=== PATIENT | male | born 1990 | race Caucasian/White ===

== ENCOUNTER 2025-07-05 09:51 | Outpatient (OUT) | payer MEDICAID, SELFPAY ==
--- OUTSIDE RECORDS SUMMARY | 2016-06-07 01:32 | XMS_ITS | Encounter Summary ---
Author Organization [facility] Address [address], [address] [place] [address] Care Team Providers Care Director Recreation Name Role Phone Sonido Caballero MD Primary Care Provider [phone] Encounter Details Date Type Department Care Team (Late st Contact Info) Description 06/07/2016 1:32 AM EDT Hospital Encounter MTH CT Scan [address] [id number] Ramiro Diaz MD [address] [place] [address] Social History Tobacco Use Types Packs/Day Years Used Date Smoking Tobacco: Former Cigarettes Q uit: 07/15/2016 Smokeless Tobacco: Never Sex and Gender Information Value Date Recorded Sex Assigned at Not on file Legal Sex Male 11:19 AM EDT Gender Identity Not on file Sexual Orientation Not on file documented as of this encounter Plan of Treatment Not on file documented as of this encounter Procedures Procedure Name Priority Date/Time Associated Diagnosis Comments CT CHEST W CONTRAST STAT 05/31/2016 2 :28 PM EDT documented in this encounter Visit Diagnoses Not on filedocumented in this encounter Administered Medications Inactive Administered Medications - up to 3 most recent administrations Medication Order MAR Action Action Date Dose Rate Site iopamidol (ISOVUE-300) 61 % injection 100 mL 100 mL, IntraVENous, IMG ONCE PRN, 1 dose, Starting on Fri05/31/16 at 1416, Until Fri05/31/16 at 1428, Other Given 05/31/2016 2:28 PM EDT 100 mLs documented in this encounter Additional Health Concerns Infection Onset Date Last Indicated Resolved Time MRSA Comment:Mediastinum and pleural fluid 06/05/2016 06/03/2016 06/03/2016 documented as of this encounter Care Teams Director Recreation Relationship Specialty Start Date End Date Sonido Caballero MD [address] [place] [address] PCP - General 06/06/16 documented as of this encounter
--- OUTSIDE RECORDS SUMMARY | 2024-11-01 10:00 | XMS_ITS ---
[facility] Address [address] [facility] [place] [address] Care Team Providers Care Roll Handler Name Role Phone Abraham Lozano Primary Care Provider [phone] REASON FOR VISIT Referral from Dr. Caballero for anxiety, depression Encounters Encounter Location Date Provider Diagnosis [facility] [address] [place] [address] 2024 Abraham Lozano Plan Of Treatment Next Appt Details Provider Name:Zulema Francois jose, 07/28/2025 08:45:00 AM, [address] [place], [address], Progress Notes * ANTHONY PALMER ADOB:1990 (35 yo M)Acc No.[id number]:11/01/2024 Behavioral Health Patient: James GILBERTOANTHONY Provider: ENA Toledo :1990 A ge:34 Y S ex:Male Date:11/01/2024 Address:[address] [place], [place] [id number] Subjective: * Chief Complaints: * [address] Caballero for anxiety, depression. * Medical History: Objective: * Vitals: Assessment: Plan: * Treatment: Care Plan: * Problems: * Images: * Electronic signature of ENA Rudd on 07/05/2025 at 09:59 AM EDT Sign off status: Pending * Provider: ENA Toledo Date: 0 11/01/2024 Generated for Printi ng/Faxing/eTransmitting on: 0 07/05/2025 09:59 AM EDT
--- OUTSIDE RECORDS SUMMARY | 2025-06-21 06:45 | XMS_ITS ---
Author Organization [facility] [place] Address [address] [place] [address] Care Team Providers Care Passenger Service Supervisor Name Role Phone Dontrell Caballero Primary Care Provider [phone] Allergies No Known Allergies REASON FOR VISIT not feeling well- woke up this AM chest congestion, right hand been swelling- hard to make a fist- no injury Medications Medication SIG (Take, Route, Frequency, Duration) Notes Start Date End Date Status Azithromycin 250 MG 2 tabs today then 1 tab Orally daily; Duration: 5 days 06/21/2025 Active Diclofenac Sodium 75 MG 1 tablet as need ed Orally Twice a day; Duration: 30 days 06/21/2025 Active Buprenorphine HCl-Naloxone HCl 8-[address] 1 FILM UNDER TONGUE THREE TIMES A DAY ALLOW TO DISSOLVE Sublingual; Duration: 14 Days Active Social History Tobacco Use: Social History Observation Description Date Details (start date - stop date) Current Smoker 10/06/2005 - NA Tobacco Use/Smoking Question Answer Notes Patient is a current smoker When did you start smoking? 10/06/2005 How often do you smoke cigarettes? every day How many cigarettes a day do you smoke? 21-30 Are you interested in quitting? Not ready to jaylin t Problems Problem Type SNOMED Code ICD Code Onset Dates Problem Status W/U Status Risk Notes Problem Valvular heart disease (902848) Valvular heart disease (I38) Active confirmed Problem Acute bronchiolitis (4800843) Acute bronchiolitis (J21.9) Active confirmed Vital Signs Weight 186.8 lbs 06/21/2025 Height 72 in 06/21/2025 Blood pressure systolic 130 mm Hg 06/21/20 25 Blood pressure diastolic 78 mm Hg 025 BMI 25.33 kg/m2 06/21/2025 Procedures Procedure Date Ordered Date Performed Result Body Sit e CARDIO Echocardiogram 06/21/2025 N/A Encounters Encounter Location Date Provider Diagnosis [facility] [address] [place] [address] 06/21/2025 Dontrell Caballero Acute bronchiolitis J21.9 and Valvular heart disease I38 Assessments Encounter Date Diagnosis (ICD Code) Assessment Notes Treatment Notes Treatment Clinical Notes Section Notes 06/21/2025 Acute bronchiolitis (ICD-10 - J21.9) 06/21/2025 Valvular heart disease (ICD-10 - I38) Hx of valvualr infection Plan Of Treatment Medication Medication Name Sig Start Date Stop Date Notes Azithromycin 250 MG 2 tabs today then 1 tab Orally daily; Duration: 5 days 06/21/2025 Diclofenac Sodium 75 MG 1 tablet as need ed Orally Twice a day; Duration: 30 days 06/21/2025 Treatment Notes Assessment Notes Valvular heart disease Hx of valvualr in fection Pending Test Test Name Order Date CARDIO Echocardiogram 06/21/2025 Progress Notes * Sudarshan PALMER ADOB:1990 (35 yo M)Acc No.[id number]:06/21/2025 Progress Note Patient: James GILBERTOSudarshan Provider: James Caballero ([facility])MD :1990 A ge:35 Y S ex:Male Date:06/21/2025 Address:[address] [place], [place] [id number] Check In:10:42 AM ESTCheck O ut:11:32 AM EST Subjective: * Chief Complaints: * n ot feeling well- woke up this AM chest congestionRight hand been swelling- hard to make a fist- no injury * HPI: D epression Screening: PHQ-9 L ittle interest or pleasure in doing things?Several days F eeling down, depressed, or hopeless S everal days T rouble falling or staying asleep, or sleeping too much N ot at all F eeling tired or having little energy S everal days P oor appetite or overeating N ot at all F eeling bad about yourself or that you are a failure, or have let yourself or your family down N ot at all T rouble concentrating on things, such as reading the newspaper or watching television M ore than half the days M oving or speaking so slowly that other people could have noticed; or the opposite, being so fidgety or restless that you have been moving around a lot more than usual N ot at all T houghts that you would be better off or of hurting yourself in some way N ot at all T otal Score 5 I nterpretation M ild Depression R hand pain and sweling this am chest congestion. * ROS: E ENT: hearing changes d enies. v isual changes d enies.?non-healing mouth sores d enies. s wollen glands or neck lumps d enies. h oarseness d enies. s ore throat d enies. d ifficulty swallowing d enies. n ose bleeds d enies. n saleem congestion d enies. e ar ache d enies. e ar discharge?denies. r inging in ears d enies. l ight sensitivity d enies. e ye pain d enies. b lurring d enies. e ye irritation d enies. d ouble vision d enies.?vision loss d enies. G eneral/Constitutional: Sweats: D enies. F atigue d enies. S leep problems d enies. A norexia d enies. M alaise d enies. W eight loss d enies.?Fatigue or Weakness d enies. F ever or Chills d enies. C ardiovascular: Shortness of Breath w/lying flat d enies. L ightheadedness/dizziness d enies. C hest tightness/ heavy pressure d enies. S welling of legs, ankles, or feet d enies. W aking up with shortness of breath d enies. C hest pain denies. P alpitations d enies. W eight gain d enies. R espiratory: Chronic or frequent cough d enies. C oughing up blood?denies. D ifficulty breathing d enies. P roductive cough d enies. S noring?denies. S hortness of breath that awakens from sleep (PND) d enies. C hest pain d enies. S putum production d enies. W heezing d enies. M usculoskeletal: Joint pain d enies. J oint Fluid d enies. B ack pain d enies. K nee pain d enies. N maria guadalupe pain d enies. J oint Stiffness d enies. M uscle cramps d enies. W eakness of muscles d enies. A rthritis d enies. M uscle aches d enies. P ain in shoulder(s) d enies. S wollen joints d enies. * Active Problem List K57.92 Diverticulitis Modified On:07/09/2023/U Status:confirmed F32.9 Mental depression Modified On:01/06/2024/U Status:confirmed F41.9 Anxiety Modified On:03/11/2024/U Status:confirmed J21.9 Acute bronchiolitis Modified On:06/21/2025/U Status:confirmed I38 Valvular heart disea se Modified On:06/21/2025/U Status:confirmed * Medical History: * Surgical History: I /d abscess 2015 * Hospitalization/Major Diagno stic Procedure: s epsos from IV drug use 2015 * Family History: F ather: alive. M other: alive, multiple sclerosis. S ister(s): alive. S on(s): alive. D aughter(s): alive. 1 sister(s) - healthy. 1 son(s) , 2 daughter(s) - healthy. . * Social History: T obacco Use: T obacco Use/Smoking P atient is a c urrent smoker W hen did you start smoking? 0 10/06/2005 H ow often do you smoke cigarettes? e very day H ow many cigarettes a day do you smoke? 2 1-30 A re you interested in quitting? N ot ready to quit * Medications: T akingBuprenorphine HCl-Naloxone HCl 8-[address] 1 FILM UNDER TONGUE THREE TIMES A DAY ALLOW TO DISSOLVE Sublingual Taking Buprenorphine HCl-Naloxone HCl 8-[address] 1 FILM UNDER TONGUE THREE TIMES A DAY ALLOW TO DISSOLVE Sublingual DiscontinuedchlordiazePOXIDE HCl 25 MG Capsule 1 capsule Orally tid [place] Carbonate 300 MG Capsule 1 capsule at bedtime Orally bid PHENobarbital 30 MG Tablet 1 tablet Orally tid TID 3 days, BID 3 cays 1 Qd 3 days then offMedication List reviewed and reconciled with the patientDiscontinued chlordiazePOXIDE HCl 25 MG Capsule 1 capsule Orally tid Discontinued [place] Carbonate 300 MG Capsule 1 capsule at bedtime Orally bid Discontinued PHENobarbital 30 MG Tablet 1 tablet Orally tid TID 3 days, BID 3 cays 1 Qd 3 days then offMedication List reviewed and reconciled with the patient * Allergies: N .K.D.A.no[Allergies Verified] Objective: * Vitals: W t:186.8lbs, Ht: 72 in, BP:130/78mm Hg, BMI:25.33Index, Ht-cm: 182.88 cm, Wt-k.73 kg. * Examination: P hysical Exam: GENERAL: w ell developed, well nourished, in no acute distress. HEAD: n ormocephalic/atraumatic. EYES: p upils equal, round and reactive to light, conjunctivae and sclerae normal. EARS: n o deformity or lesion of external ear, canals and TM appear normal bilaterally, TM's intact, not inflamed with normal light reflex, hearing grossly normal to conversational speech. NOSE: n o deformity, discharge, inflammation, or lesions.? MOUTH: m ucous membranes moist, normal oropharynx and posterior pharynx without lesions or exudates, tongue normal, dentition normal. NECK: n maria guadalupe supple, no masses or palpable cervical nodes, trachea midline, thyroid without nodules, masses, tenderness, or enlargement. CHEST: n o chest wall deformity, no chest wall tenderness.? LUNGS: n ormal respiratory effort and clear to auscultation, no wheezes, rales, or rhonchi, good air exchange. CARDIO: r egular rate and rhythm, normal S1 and S2, nor murmur, rub, or gallop. PULSES: n ormal capillary refill. ABDOMEN: s oft, non-distended, non-tender, no masses. MUSCULOSKELETAL: n o deformity or scoliosis noted, normal range of motion, joints normal, no erythema, edema, effusion, or ecchymosis. EXTREMITY: n o clubbing, cyanosis, edema, or deformity with normal ROM in both upper and lower bilateral extremities. NEUROLOGIC: g rossly normal. SKIN: n o rashes, ulcerations, or suspicious lesions. LYMPH NODES: n o cervical adenopathy, nodes normal. MENTAL STATUS: a lert and oriented x3, normal mood and affect. Assessment: * Assessment: 1. A cute bronchiolitis - J21.9 (Primary) 2 . V alvular heart disease - I38? Plan: * Treatment: 2. V alvular heart disease P rocedure: CARDIO Echocardiogram Notes: Hx of valvualr infection * Procedure Codes: * Preventive Medicine: Screenings/Counseling: B DE ACTION PLAN Above Normal BMI Follow-up D ietary management education, guidance, and counseling * * Sign off status: Completed Visit Status: C HK (Check Out) true * Provider: James Caballero ([facility])MD Date: 0 06/21/2025 Generated for Katherinei gayle/Jeremy/eTransmitting on: 0 07/05/2025 09:59 AM EDT History and Physical Notes * HPI (History of Present Illness) Category Sub-Category Detail Notes Category Not es Depression Screening PHQ-9 Little inte rest or pleasure in doing things: Several days R hand pain and sweling this am chest congestion Feeling down, depressed, or hopeless: Se veral days Trouble falling or staying asleep, or sl eeping too much: Not at all Feeling tired or having little energy: S everal days Poor appetite or overeating: Not at all Feeling bad about yourself o r that you are a failure, or have let yourself or your family down: Not at all Trouble concentrating on thi ngs, such as reading the newspaper or watching television: More than half the days Moving or speaking so slowly that other people could have noticed; or the opposite, being so fidgety or restless that you have been moving around a lot more than usual: Not at all Thoughts that you would be b tamara off or of hurting yourself in some way: Not at all Total Score: 5 Interpretation: Mild Depression Examination Category Sub-Category Detail Notes Category Not es Physical Exam GENERAL: well developed, well nourished, in no acute distress HEAD: normocephalic/atraum atic EYES: pupils equal, round and reactive to light, conjunctivae and sclerae normal EARS: no deformity or lesi on of external ear, canals and TM appear normal bilaterally, TM's intact, not inflamed with normal light reflex, hearing grossly normal to conversational speech NOSE: no deformity, discha rge, inflammation, or lesions MOUTH: mucous membranes myriam st, normal oropharynx and posterior pharynx without lesions or exudates, tongue normal, dentition normal NECK: neck supple, no mass es or palpable cervical nodes, trachea midline, thyroid without nodules, masses, tenderness, or enlargement CHEST: no chest wall deform ity, no chest wall tenderness LUNGS: normal respiratory e ffort and clear to auscultation, no wheezes, rales, or rhonchi, good air exchange CARDIO: regular rate and rhy thm, normal S1 and S2, nor murmur, rub, or gallop PULSES: normal capillary ref ill ABDOMEN: soft, non-distended, non-tender, no masses RECTAL: MUSCULOSKELETAL: no deformity or scol iosis noted, normal range of motion, joints normal, no erythema, edema, effusion, or ecchymosis EXTREMITY: no clubbing, cyanosi s, edema, or deformity with normal ROM in both upper and lower bilateral extremities NEUROLOGIC: grossly normal SKIN: no rashes, ulceratio ns, or suspicious lesions LYMPH NODES: no cervical adenopat hy, nodes normal MENTAL STATUS: alert and oriented x 3, normal mood and affect
--- NOTE | 2025-07-05 09:59 | CA_ITS ---
Patient Name: ANTHONY PALMER MR#: [id number] : 1990 Exam Date: 07/05/2025 Ordering Doctor: DR ANDERSON IRVIN . ECHOCARDIOGRAM REPORT PROCEDURE: CA ECHO DOPPLER COMPLETE INDICATIONS: Valvular heart disease - h/o infection in sternum, lung and heart, smoker COMPARISON: None. DESCRIPTION: COMPLETE ECHOCARDIOGRAM Real-time transthoracic echocardiography with 2D, M-mode, spectral and color flow Doppler performed. QUALITY: Technical quality was good. LEFT VENTRICLE: Normal chamber size. Normal left ventricular wall thickness. Normal systolic function. Estimated left ventricular ejection fraction is 60%. LV EF: Normal left ventricular ejection fraction, (>55%). DIASTOLIC: Normal diastolic function. ATRIAL SEPTUM: Visually appears intact. LEFT ATRIUM: Normal chamber size. RIGHT ATRIUM: Normal chamber size. RIGHT VENTRICLE: Normal chamber size. Normal right ventricular systolic function. TRICUSPID VALVE: Normal mobility and thickness. No stenosis with mild regurgitation. No evidence of pulmonary hypertension. RVSP 22 mmHg MITRAL VALVE: Normal mobility and thickness. No evidence of mitral valve stenosis. There is no mitral annular calcification. Trivial mitral regurgitation. AORTIC VALVE: Normal trileaflet appearance. No visible sclerosis. Normal leaflet mobility. No evidence of aortic valve stenosis. No aortic regurgitation. AORTIC ROOT: Normal diameter and appearance, measuring 3.4 cm. Ascending aorta is normal in size, measuring 3.0 cm. PULMONIC VALVE: Normal thickness and mobility. No stenosis. No regurgitation. PERICARDIUM: No evidence of pericardial effusion. IVC: Collapses with inspiration. PLEURA: CONCLUSION: 1. Normal ventricular size and systolic function. Estimated LVEF is 60%. 2. Normal diastolic function. 3. No significant valvular dysfunction. 4. Normal right-sided pressures. Adult Echocardiography Procedure Report Left Ventricle LVEDD (3.7 - 5.6 cm): 4.47 cm LVESD (2.2 - 4.0 cm): 3.23 cm LVIVS thickness (0.6 - 1.2 cm): 0.82 cm LVPW thickness (0.5 - 1.0 cm): 0.87 cm e': 0.20 m/s E - e': 3.68 LVOT Max Gradient: 3.45 mm[Hg] LVOT Area (cm2): 0.93 m/s Peak Velocity (LVOT): 0.93 m/s Mean Velocity (LVOT): 0.60 m/s LVOT Diameter 2.36 cm Left Ventricular Ejection Fraction: 60 % Left Atrium LA Volume Index (2D A2C): 21.85 ml/m2 Left Atrium Systolic Dimension: 3.12 cm Mitral Valve MV E to A Ratio: 1.60 Mitral Valve A-Wave Peak Velocity: 0.47 m/s Mitral Valve E-Wave Peak Velocity: 0.75 m/s Right Ventricle Aorta AO Root Diam: 3.39 cm Ascending Ao Diam: 2.99 cm Aortic Valve AoV Area (Peak Camilo): 4.06 cm2, 4.06 cm2 AoV Area (VTI): 3.57 cm2, 3.57 cm2 Peak Velocity(Antegrade Flow): 1.00 m/s Peak Gradient(Antegrade Flow): 3.99 mm[Hg] Mean Velocity(Antegrade Flow): 0.70 m/s Mean Gradient(Antegrade Flow): 2.23 mm[Hg] Velocity Time Integral: 22.21 cm Tricuspid Valve Peak Velocity (Regurgitant Flow): 2.15 m/s, 2.14 m/s, 2.16 m/s, 2.19 m/s Pulmonic Valve Peak Velocity: 0.76 m/s Peak Gradient: 2.31 mm[Hg] Right Atrium Right Atrium Systolic Pressure: 41.90 ml, 41.90 ml Dictated by: Augusto Gonzalez M.D. on 07/05/2025 at 19:16 Approved by: Augusto Gonzalez M.D. on 07/05/2025 at 19:19
--- OUTSIDE RECORDS SUMMARY | 2025-07-05 09:59 | XMS_ITS | Encounter Summary ---
Author Organization [facility] Address [address], [address] [place] [address] Care Team Providers Care Cellophaner Name Role Phone Sonido Caballero MD Primary Care Provider [phone] Encounter Details Date Type Department Care Team (Late st Contact Info) Description 07/11/2016 FollowUp Telephone Encounter [facility] [address] [facility] [place], [place] [id number] Bonny Hoover RN Social History Tobacco Use Types Packs/Day Years Used Date Smoking Tobacco: Some Days Cigarettes Smokeless Tobacco: Never Sex and Gender Information Value Date Recorded Sex Assigned at Not on file Legal Sex Male 11:19 AM EDT Gender Identity Not on file Sexual Orientation Not on file documented as of this encounter Progress Notes * Bonny Hoover, RN - 07/11/2016 2:59 PM EDT Spoke with Eugenia at [facility] who stated that the pt was doing well and was going to be released soon due to the IV vanco being completed. Pt Up ad esdras with any problems. Wound vac is off and incisions are clean, dry and intact. BP 115/65 SaO2 98% RA Temp 97.2 RR 20 HR 79 No needs verbalized at this time documented in this encounter Plan of Treatment Not on file documented as of this encounter Visit Diagnoses Not on filedocumented in this encounter Additional Health Concerns Infection Onset Date Last Indicated Resolved Time MRSA Comment:Mediastinum and pleural fluid 06/05/2016 06/03/2016 06/03/2016 documented as of this encounter Care Teams Cellophaner Relationship Specialty Start Date End Date Sonido Caballero MD [address] [id number] PCP - General 06/06/16 documented as of this encounter
--- OUTSIDE RECORDS SUMMARY | 2025-07-05 09:59 | XMS_ITS | Clinical Summary ---
Author Organization [facility] Address [id number] [place] [address] Care Team Providers Care Platinum And Palladium Kettle Tender Name Role Phone Sonido Caballero MD Primary Care Provider [phone] Allergies No known active allergies Medications buprenorphine-na loxone (SUBOXONE) 8-2 mg per SL tablet Place 1 tablet under the tongue 2 (two) times a day. Active Social History Tobacco Use Types Packs/Day Years Used Date Smoking Tobacco: Every Day Smokeless Tobacco: Never Alcohol Use Standard Drinks/Week Comments Never 0 (1 standard drink = 0.6 oz pur e alcohol) AUDIT-C Answer Date Recorded Frequency of Alcohol Consumption Never 04/22/2019 Average Number of Drinks Not on file 019 Frequency of Binge Drinking Not on file 04/05 Childcare Answer Date Recorded Childcare Unknown 04/22/2019 Employment Answer Date Recorded Employment Unknown 04/22/2019 Purpose - Life Answer Date Recorded Purpose and direction in life Unknown Sex and Gender Information Value Date Recorded Sex Assigned at Not on file Legal Sex Male 2:16 PM EDT Gender Identity Not on file Sexual Orientation Not on file Last Filed Vital Signs Vital Sign Reading Time Taken Comments Blood Pressure 91/60 11/12/2019 3:18 PM EST Pulse 86 11/12/2019 2:17 PM EST Temperature 37 C (98.6 F) 11/12/2019 2:17 PM EST Respiratory Rate 14 11/12/2019 2:17 PM EST Oxygen Saturation 97% 11/12/2019 3:29 PM EST Inhaled Oxygen Concentration - - Weight 68 kg (150 lb) 11/12/2019 2:17 PM EST Height 182.9 cm (6') 11/12/2019 2:17 PM EST Body Mass Index 20.34 11/12/2019 2:17 PM EST Plan of Treatment Health Maintenance Due Date Last Done Comments Depression Screening 2000 Tobacco Screening 2000 Adult BMI Screening 02/27/2006 DTaP,Tdap and Td Vaccines (1 - Tdap) 02/27/2007 Influenza Vaccine 06/06/2025 Medical Devices Not on file Insurance MEDICAID Care Teams Platinum And Palladium Kettle Tender Relationship Specialty Start Date End Date Sonido Caballero MD PCP - General Family Medicine 04/22/19
--- OUTSIDE RECORDS SUMMARY | 2025-07-05 09:59 | XMS_ITS | Encounter Summary ---
Author Organization [facility] Address [address] [place] [address] Care Team Providers Care Cut Off Operator Scorer Name Role Phone Unavailable Primary Care Provider Unavailabl e Encounter Details Date Type Department Care Team (Late st Contact Info) Description 10/05/2021 Abstract PATIENT ACUITY SCORE Social History Tobacco Use Types Packs/Day Years Used Date Smoking Tobacco: Never Assessed Sex and Gender Information Value Date Recorded Sex Assigned at Not on file Legal Sex Male 11:21 AM EDT Gender Identity Not on file Sexual Orientation Not on file documented as of this encounter Plan of Treatment Not on file documented as of this encounter Visit Diagnoses Not on filedocumented in this encounter
--- OUTSIDE RECORDS SUMMARY | 2025-07-05 09:59 | XMS_ITS | Encounter Summary ---
Author Organization [facility] Address [address] [place] [address] Care Team Providers Care Radio Installer Name Role Phone Unavailable Primary Care Provider Unavailabl e Encounter Details Date Type Department Care Team (Late st Contact Info) Description 04/04/2022 Abstract PATIENT ACUITY SCORE Social History Tobacco [...]
--- OUTSIDE RECORDS SUMMARY | 2025-07-05 09:59 | XMS_ITS | Patient Health Record ---
Author Organization [facility] Address [address] [place] [address] Care Team Providers Care Hardwood Floor Sander Name Role Phone Abraham Lozano Primary Care Provider [phone] Reason For Referral No Information Problems Problem Type SNOMED Code ICD Code Onset Dates Problem Status W/U Status Risk Notes Problem Major depression, single episode (79963624) Major depression, chronic (F32.9) Active confirmed Plan Of Treatment Next Appt Details Provider Name:Zulema Chris garcia, 07/28/2025 08:45:00 AM, [address] [place], [address], Insurance Providers Payer Name Payer Address Payer Phone Subscriber Number Group Number Insured Name Patient Relationship to Insured Coverage Start Date Coverage End Date [employer] [place] Medicaid [address] [place] [address] [id number] ANTHONY PALMER Self - patient is the insured 4 [facility] [address] [place] [address] [id number] ANTHONY PALMER Self - patient is the insured 5 [facility] [address] [place] [address] [id number] ANTHONY PALMER Self - patient is the insured 5
--- OUTSIDE RECORDS SUMMARY | 2025-07-05 09:59 | XMS_ITS | Encounter Summary ---
Author Organization [facility] Address [address] [place] [address] Care Team Providers Care Typists Supervisor Name Role Phone Unavailable Primary Care Provider Unavailabl e Encounter Details Date Type Department Care Team (Late st Contact Info) Description 01/03/2022 Abstract PATIENT ACUITY SCORE Social History Tobacco [...]
--- OUTSIDE RECORDS SUMMARY | 2025-07-05 09:59 | XMS_ITS | Encounter Summary ---
Author Organization [facility] Address [address], [address] [place] [address] Care Team Providers Care Orchestra Teacher Name Role Phone Sonido Caballero MD Primary Care Provider [phone] Encounter Details Date Type Department Care Team (Late st Contact Info) Description 06/27/2016 FollowUp Telephone Encounter [facility] [address] [place], [place] [id number] Bonny Hoover RN Social History Tobacco Use Types Packs/Day Years Used Date Smoking Tobacco: Some Days Cigarettes Smokeless Tobacco: Never Sex and Gender Information Value Date Recorded Sex Assigned at Not on file Legal Sex Male 11:19 AM EDT Gender Identity Not on file Sexual Orientation Not on file documented as of this encounter Progress Notes * Bonny Hoover, RN - 06/27/2016 1:26 PM EDT Called [facility] and they stated that the nurse was at lunch and no one was able to give any information re:pts care. Message left. documented in this encounter Plan of Treatment Not on file documented as of this encounter Visit Diagnoses Not on filedocumented in this encounter Additional Health Concerns Infection Onset Date Last Indicated Resolved Time MRSA Comment:Mediastinum and pleural fluid 06/05/2016 06/03/2016 06/03/2016 documented as of this encounter Care Teams Orchestra Teacher Relationship Specialty Start Date End Date Sonido Caballero MD [address] [place] [address] PCP - General 06/06/16 documented as of this encounter
--- OUTSIDE RECORDS SUMMARY | 2025-07-05 09:59 | XMS_ITS | Clinical Summary ---
Author Organization [facility] Address [address] [facility] [address] [place] [address] Care Team Providers Care Apprenticeship Representative Name Role Phone Unavailable Primary Care Provider Unavailabl e Source Comments The following information is NOT included in Care Everywhere downloads:Psychiatric notes, ECG results, Cardiac Rehab notes, Pulmonary Function notes, data from SmartForms (includes but not limited toPregnancy data,audiograms, eye exams, pre-surgical evaluation notes, well-child exam data).[facility] Immunizations Immunization Administration Dates Next Due DTP (CVX=01) 06/16/1991, 0,1988,1987 Hib, unspecified formulation (CVX=17) 06/16/1991 MMR, Lwlgrln-Gafdr-Cylefte (CVX=03) 07/07/2002,0 01/20/1990 Polio, oral (OPV) (CVX=02) 01/20/1990,1988 ,1988 Social History Tobacco Use Types Packs/Day Years Used Date Smoking Tobacco: Never Assessed Sex and Gender Information Value Date Recorded Sex Assigned at Not on file Legal Sex Male 11:21 AM EDT Gender Identity Not on file Sexual Orientation Not on file Plan of Treatment Health Maintenance Due Date Last Done Comments HIV Test 02/27/2003 Hepatitis C Antibody 02/27/2006 Tdap Booster 02/27/2006 Hepatitis A (HAV) Vaccine (optional start 19+ years) 02/27/2007 Hepatitis B (HBV) Vaccine (1 of 3 - 19+ 3-dose series) 02/27/2007 Tetanus (Td or Tdap) Booster 02/27/2007 HPV Vaccine (optional start 27-45 years) 02/27/2015 Cholesterol 02/27/2023 COVID-19 Vaccine (3 - 2024-2 6 season) 2025 03/31/2021, 03/10/2021 Influenza Vaccine (#1) 2025 Shingles (RZV) Vaccine (1 of 2) 02/27/2038 Pneumococcal Vaccine(s) Aged Out No l onger eligible based on patient's age to complete this topic
--- OUTSIDE RECORDS SUMMARY | 2025-07-05 10:00 | XMS_ITS | Encounter Summary ---
Author Organization [facility] Address [address], [address] [place] [address] Care Team Providers Care Jig Bore Tool Maker Name Role Phone Sonido Caballero MD Primary Care Provider [phone] Encounter Details Date Type Department Care Team (Late st Contact Info) Description 06/19/2016 FollowUp Telephone Encounter [facility] [place], [place] [id number] Bonny Hoover, RN Social History Tobacco Use Types Packs/Day Years Used Date Smoking Tobacco: Every Day Cigarettes Sex and Gender Information Value Date Recorded Sex Assigned at Not on file Legal Sex Male 11:19 AM EDT Gender Identity Not on file Sexual Orientation Not on file documented as of this encounter Progress Notes * Bonny Hoover, RN - 06/19/2016 10:31 AM EDT Spoke with Colleen from [facility] who stated that the pt was doing very well. He is up ad esdras in the room and in the hallway. All wound vacs remain to suction without any signs on complications. VS: HR94 RR 18 Temp 98.3 SaO2 98% on room air BP 99/55 documented in this encounter Plan of Treatment Not on file documented as of this encounter Visit Diagnoses Not on filedocumented in this encounter Additional Health Concerns Infection Onset Date Last Indicated Resolved Time MRSA Comment:Mediastinum and pleural fluid 06/05/2016 06/03/2016 06/03/2016 documented as of this encounter Care Teams Jig Bore Tool Maker Relationship Specialty Start Date End Date Sonido Caballero MD [address] [place] [address] PCP - General 06/06/16 documented as of this encounter
--- OUTSIDE RECORDS SUMMARY | 2025-07-05 10:00 | XMS_ITS | Clinical Summary ---
Author Organization [facility] Address [address] [place] [address] Care Team Providers Care Analytic Programmer Name Role Phone Unavailable Primary Care Provider Unavailabl e Social History Tobacco Use Types Packs/Day Years Used Date Smoking Tobacco: Never Assessed Sex and Gender Information Value Date Recorded Sex Assigned at Not on file Legal Sex Male 7:12 PM EDT Gender Identity Not on file Sexual Orientation Not on file Plan of Treatment Not on file Insurance MEDICAID [place]
--- OUTSIDE RECORDS SUMMARY | 2025-07-05 10:00 | XMS_ITS | Patient Health Record ---
Author Organization [facility] Address [address] [place] [address] Care Team Providers Care Strategic Client Executive Name Role Phone Dontrell Caballero Primary Care Provider Allergies No Known Allergies Reason For Referral No Information Medications Medication SIG (Take, Route, Frequency, Duration) [...] in quitting? Not ready to jaylin t Alcohol Screen (Audit-C) Question Answer Notes Did you have a drink containing alcohol in the p ast year? No Points 0 Interpretation Negative AUDIT-C (Standard) Question Answer Notes Did you have a drink containing alcohol in the p ast year? No Points 0 Interpretation Negative Problems Problem Type SNOMED Code ICD Code Onset Dates Problem Status W/U Status Risk Notes Problem Anxiety (64555399) Anxiety (F41.9) Active confirmed Problem Valvular heart disease (606001) Valvular heart disease (I38) Active confirmed Problem Diverticulitis (84922190) Diverticulitis (K57.92) Active confirmed Problem Acute bronchiolitis (2933707) Acute bronchiolitis (J21.9) Active confirmed Problem Major depression, single episode (71395587) Mental depression (F32.9) Active confirmed Vital Signs Blood pressure diastolic 78 mm Hg 06/21/2025 Height 72 in 06/21/2025 Blood pressure systolic 130 mm Hg 06/21/2025 Weight 186.8 lbs 06/21/2025 BMI 25.33 kg/m2 06/21/2025 Procedures Procedure Date Ordered Date Performed Result Body Sit e CARDIO Echocardiogram 06/21/2025 N/A Encounters Encounter Location Date Provider Diagnosis [facility] [address] [place] [address] 06/21/2025 Dontrell Hoy Acute bronchiolitis J21.9 and Valvular heart disease I38 Assessments Encounter Date Diagnosis (ICD Code) Assessment Notes Treatment Notes Treatment Clinical Notes Section Notes 06/21/2025 Valvular heart disease (ICD-10 - I38) Hx of valvualr infection 06/21/2025 Acute bronchiolitis (ICD-10 - J21.9) Plan Of Treatment Pending Test Test Name Order Date CARDIO Echocardiogram 06/21/2025 LITHIUM 03/11/2024 PROF CHEM 8 (BAS METB) 03/11/2024 THYROID PROFILE WITH TSH 03/11/2024 Insurance Providers Payer Name Payer Address Payer Phone Subscriber Number Group Number Insured Name Patient Relationship to Insured Coverage Start Date Coverage End Date [employer] [place] [employer] [address] [address] [place] [address] [id number] Sudarshan Andrea Self - patient is the insured Medical (General) History Medical History History ICD Code Drug abuse, opioid type F11.10 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
--- OUTSIDE RECORDS SUMMARY | 2025-07-05 10:00 | XMS_ITS | Clinical Summary ---
Author Organization [facility] Address [address], [address] [place] [address] Care Team Providers Care Chemical Plant Operator Name Role Phone Sonido Caballero MD Primary Care Provider [phone] Allergies No known active allergies Medications docusate sodium (COLACE, DULCOLAX) 100 MG CAPS Take 100 mg by mouth 2 times daily 20 capsule 6 Active Additional Information Patient not taking.Reported on 08/09/2019 [facility] ARTHRITIS [facility] RELIEF 650 MG extended release tablet Take 650 mg by mouth every 8 hours as needed 6 Active buprenorphine-n aloxone (SUBOXONE) 8-2 [address] SL film Place 1 Film under the tongue daily. Active ALPRAZolam (XANAX) 0.25 MG tablet Take 0.25 mg by mouth nightly as needed for Sleep. Active divalproex (DEPAKOTE ER) 500 MG extended release tablet Take 500 mg by mouth 2 times daily Active levETIRAcetam (KEPPRA) 500 MG tablet Take 1 tablet by mouth 2 times daily 60 tablet 2 9 Active levETIRAcetam (KEPPRA) 500 MG tablet Take 1 tablet by mouth 2 times daily 60 tablet 3 0 Active Active Problems Problem Noted Date Diagnosed Date Pneumonia of both lower lobe s due to methicillin resistant Staphylococcus aureus (MRSA) 06/03/2016 Mediastinal abscess 06/03/2016 Respiratory distress, acute 06/01/2016 IV drug user 06/01/2016 Pneumonia of right lower lobe due to infectious organism 06/01/2016 Cellulitis of chest wall 06/01/2016 Leukocytosis 06/01/2016 Overview (07/07/2016): Replacing Inactive Diagnoses Iron deficiency anemia 06/01/2016 Acute hyperglycemia 06/01/2016 Fever and chills 06/01/2016 Pulmonary cavitary lesion Empyema, right Immunizations Immunization Administration Dates Next Due PPD Test 05/31/2016 Social History Tobacco Use Types Packs/Day Years Used Date Smoking Tobacco: Former Cigarettes Q uit: 07/15/2016 Smokeless Tobacco: Never Sex and Gender Information Value Date Recorded Sex Assigned at Not on file Legal Sex Male 11:19 AM EDT Gender Identity Not on file Sexual Orientation Not on file Last Filed Vital Signs Vital Sign Reading Time Taken Comments Blood Pressure 117/60 08/09/2019 10:28 AM EST Pulse 67 08/09/2019 10:28 AM EST Temperature 36.4 C (97.5 F) 08/09/2019 10:28 AM EST Respiratory Rate 18 08/09/2019 10:28 AM EST Oxygen Saturation 99% 07/29/2016 10:53 AM EDT Inhaled Oxygen Concentration - - Weight 70.8 kg (156 lb) 08/09/2019 10:28 AM EST Height 182.9 cm (6') 08/09/2019 10:28 AM EST Body Mass Index 21.16 08/09/2019 10:28 AM EST Plan of Treatment Not on file Additional Health Concerns Infection Onset Date Last Indicated MRSA Comment:Mediastinum and pleural fluid 06/05/2016 06/03/20162015 Insurance [facility] Advance Directives * Full Code (Latest Code Status on File) Date Activated Date Inactivated Comments 06/05/2016 12:22 PM 06/14/2016 6:21 PM * Full Code Date Activated Date Inactivated Comments 05/31/2016 11:09 PM 06/05/2016 12:22 PM Care Teams Chemical Plant Operator Relationship Specialty Start Date End Date Sonido Caballero MD [address] [place] [address] PCP - General 06/06/16
== END 2025-07-05 09:52 | disposition home or self-care (01) ==
LOC: CARD 09:55
PROVIDERS: PCP Family Medicine; Visit Provider Family Medicine
DX: I38 Endocarditis, valve unspecified (principal)
CPT/HCPCS: 93306